=== PATIENT | female | born 1985 | race Caucasian/White ===

== ENCOUNTER 2016-06-20 13:43 | Emergency (ER) | payer SELFPAY ==
[~2016-06-20] VITALS: Ht 165.1 cm; Wt 55.1 kg
[~2016-06-20 13:43] MED LIST: AUGM875T PO; CYCL-36 PO; METO25 PO; OXYC15TA PO; PERC7.5T13 PO; PRED20 PO; PRED50 PO
[2016-06-20 13:51] VITALS: BP 124/88; PULSE 116; RESP 16; TEMP 99; O2SAT 100
== END 2016-06-20 14:28 | disposition left against medical advice (07) ==
LOC: PHED 13:43
DX: R59.0 Localized enlarged lymph nodes (principal); Z53.21 Procedure and treatment not carried out due to patient leaving prior to being seen by health care provider
CPT/HCPCS: 99281

== ENCOUNTER 2016-06-23 02:18 | Emergency (ER) | payer OTHER ==
[~2016-06-23] VITALS: Ht 165.1 cm; Wt 56.3 kg
[2016-06-23 02:24] VITALS: BP 131/95; PULSE 109; RESP 20; TEMP 98.3; O2SAT 100
[2016-06-23] MEDS ORDERED: NAPR220T95 PO (03:04)
[2016-06-23] MEDS ORDERED: METO25TA3 PO (03:04)
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
[2016-06-23] MEDS ORDERED: AMOX875T PO (04:04)
[2016-06-23] MEDS ORDERED: PERC5TAB12 PO (04:09)
[2016-06-23] MEDS ORDERED: cefTRIAXone INJ 1,000 MG in SODIUM CHLORIDE 0.9% INJ 100 ML IV ONE (04:15)
[2016-06-23] MEDS ORDERED: oxyCODONE/ACETAMINOPHEN 7.5 MG/325 MG TAB PO ONE (04:15)
[2016-06-23 04:37] LABS: BETA HCG QUANT LESS THAN 1 MIU/ML (0-5)
[2016-06-23 05:29] VITALS: BP 143/88; TEMP 98.1
== END 2016-06-23 05:33 | disposition home or self-care (01) ==
LOC: PHED 02:18
DX: K12.2 Cellulitis and abscess of mouth (principal); K02.9 Dental caries, unspecified; F90.9 Attention-deficit hyperactivity disorder, unspecified type; I10 Essential (primary) hypertension; F17.200 Nicotine dependence, unspecified, uncomplicated; Z88.8 Allergy status to other drugs, medicaments and biological substances
CPT/HCPCS: 84702; 96365; 99283; J0696

== ENCOUNTER 2016-08-15 21:30 | Emergency (ER) | payer OTHER ==
[~2016-08-15] VITALS: Ht 165.1 cm; Wt 52.0 kg
[~2016-08-15 21:30] MED LIST changes: +AMOX875T PO; -AUGM875T PO; -CYCL-36 PO; -METO25 PO; +METO25TA3 PO; +NAPR220T95 PO; -OXYC15TA PO; +PERC5TAB12 PO; -PERC7.5T13 PO; -PRED20 PO; -PRED50 PO
[2016-08-15 21:31] VITALS: BP 138/88; PULSE 91; RESP 16; TEMP 98.3; O2SAT 100
--- NOTE | 2016-08-15 23:02 | PD ---
HPI Chief Complaint: Related Problem Time Seen by Provider: 23:01 Travel History International Travel<30 days: No Contact w/Intl Traveler<30days: No Traveled to known affect area: No History of Present Illness HPI 29-year-old female came to the emergency room with history of spotting. Patient tested positive for at home. Her last menstrual period was July 02. She has not had any OB seen her yet. Patient says the spotting started 2 days ago when it was just a light bleed. However today it was brighter. No history of cramps. Patient is A1. PFSH Past Medical History Narrative Medical List of her past medical, surgical, social and family history reviewed from the nursing note. Hx Anticoagulant Therapy: No ADHD: Yes Blood Disorders: No Cancer: No Cardiovascular Problems: Yes (htn on meds) Chemotherapy: No Cerebrovascular Accident: No Diabetes: No Diminished Hearing: No Endocrine: No Glaucoma: No Genitourinary: No Headaches: No Hepatitis: No Hiatal Hernia: No Hypertension: Yes Immune Disorder: No Musculoskeletal: Yes (CHRONIC JAW PAIN) Neurologic: No Psychiatric: No Reproductive: No Respiratory: No Immunizations Current: Yes Radiation Therapy: No Seizures: No Sickle Cell Disease: No Thyroid Disease: No ?: LMP: 07/02/16 : 4 Para: 3 Miscarriage: 1 : 0 Past Surgical History Oral Surgery: Yes (SINUS AND JAW SURGERY) Pacemaker: No Other Surgery: Yes (JAW SURGERIES) Social History Alcohol Use: Yes (SOCIALLY/Occassionally) Tobacco Use: Yes (1PPD) Substance Use: Yes (Patient denies abuse.) Allergies-Medications (Allergen,Severity, Reaction): Coded Allergies: Azithromycin (Verified Allergy, Severe, NAUSEA/HIVES, 06/23/16) Erythromycin (Verified Allergy, Severe, HIVES; NAUSEA AND VOMITING, 08/15/16 ) Macrolides (Verified Allergy, Unknown, 06/23/16) Per [facility] (Pharmacist) [phone] Uncoded Allergies: FRUIT PUCH (Allergy, Mild, HIVES AND NAUSEA AND VOMITING, 11/05/15) . "Fruit Punch" (Allergy, Unknown, 11/05/15) .Per pt. Comments List of her allergies reviewed from the nursing note. Reported Meds & Prescriptions Reported Meds & Active Scripts Active Macrobid (Nitrofurantoin Monoh/Nitrofur Macro) 100 Mg Cap 100 Mg PO BID 10 Days Percocet (Oxycodone-Acetaminophen) 5-325 mg Tab 1 Tab PO Q4H PRN Reported Metoprolol Tartrate 25 Mg Tab 25 Mg PO BID Narrative Medication List of her home medications reviewed from the nursing note. Review of Systems Except as stated in HPI: all other systems reviewed are Neg Physical Exam Narrative GENERAL: Awake, alert, no obvious distress SKIN: Focused skin assessment warm/dry. HEAD: Atraumatic. Normocephalic. EYES: Pupils equal and round. No scleral icterus. No injection or drainage. ENT: No nasal bleeding or discharge. Mucous membranes pink and moist. Poor dentition. NECK: Trachea midline. No JVD. CARDIOVASCULAR: Regular rate and rhythm. No murmur appreciated. RESPIRATORY: No accessory muscle use. Clear to auscultation. Breath sounds equal bilaterally. GASTROINTESTINAL: Abdomen soft, non-tender, nondistended. Hepatic and splenic margins not palpable. MUSCULOSKELETAL: No obvious deformities. No clubbing. No cyanosis. No edema. NEUROLOGICAL: Awake and alert. No obvious cranial nerve deficits. Motor grossly within normal limits. Normal speech. PSYCHIATRIC: Appropriate mood and affect; insight and judgment normal. Data Data Last Documented VS Vital Signs Date Time Temp Pulse Resp B/P Pulse Ox O2 Delivery O2 Flow Rate FiO2 08/15/16 21:31 98.3 91 16 138/88 100 Room Air Orders Beta Hcg (Quant/Titer) (08/15/16 23:14) Complete Blood Count With Diff (08/15/16 23:14) Basic Metabolic Panel (Bmp) (08/15/16 23:14) Type And Screen (08/15/16 23:14) Ua Includes Microscopic (08/15/16 23:14) Ed Urine Pregnancytest Poc (08/15/16 23:14) Potassium Chloride Eff (K-Lyte Cl Eff) (08/16/16 00:30) Nitrofurantoin Monohyd Macrocr (Macrobid (08/16/16 00:30) Us Pelvis (Ques Pr/Ect)W Trans (08/16/16 ) Labs Laboratory Tests Test 08/15/16 08/15/16 23:20 23:25 Urine Color YELLOW Urine Turbidity HAZY Urine pH 6.5 Urine Specific [place] 1.017 Urine Protein NEG mg/dL Urine Glucose (UA) NEG mg/dL Urine Ketones NEG mg/dL Urine Occult Blood NEG Urine Nitrite POS Urine Bilirubin NEG Urine Urobilinogen LESS THAN 2.0 MG/DL Urine Leukocyte Esterase MOD Urine RBC 2 /hpf Urine WBC 10 /hpf Urine Squamous Epithelial 2 /hpf Cells Urine Amorphous Sediment RARE Urine Bacteria MANY /hpf Urine Hyaline Casts /lpf Urine Mucus FEW /lpf White Blood Count 7.3 TH/MM3 Red Blood Count 4.11 MIL/MM3 Hemoglobin 10.0 GM/DL Hematocrit 31.2 % Mean Corpuscular Volume 75.9 FL Mean Corpuscular Hemoglobin 24.3 PG Mean Corpuscular Hemoglobin 32.0 % Concent Red Cell Distribution Width 18.3 % Platelet Count 211 TH/MM3 Mean Platelet Volume 8.1 FL Neutrophils (%) (Auto) 56.1 % Lymphocytes (%) (Auto) 33.8 % Monocytes (%) (Auto) 7.3 % Eosinophils (%) (Auto) 2.0 % Basophils (%) (Auto) 0.8 % Neutrophils # (Auto) 4.1 TH/MM3 Lymphocytes # (Auto) 2.5 TH/MM3 Monocytes # (Auto) 0.5 TH/MM3 Eosinophils # (Auto) 0.1 TH/MM3 Basophils # (Auto) 0.1 TH/MM3 CBC Comment DIFF FINAL Differential Comment Sodium Level 140 MEQ/L Potassium Level 3.1 MEQ/L Chloride Level 107 MEQ/L Carbon Dioxide Level 25.7 MEQ/L Anion Gap 7 MEQ/L Blood Urea Nitrogen 5 MG/DL Creatinine 0.54 MG/DL Estimat Glomerular Filtration 130 ML/MIN Rate Random Glucose 95 MG/DL Calcium Level 8.5 MG/DL Human Chorionic Gonadotropin, [address]10 MIU/ML Quant Blood Type O POSITIVE Antibody Screen NEGATIVE MDM Medical Decision Making Medical Screen Exam Complete: Yes Emergency Medical Condition: Yes Medical Record Reviewed: Yes Differential Diagnosis Threatened , implantation bleed Narrative Course 11:20 PM awaiting for the blood test result. I'll perform a bedside pelvic ultrasound. 12:36 AM blood test results of back and patient has a significant beta hCG Quant on sides with the number of weeks. However when I did the bedside ultrasound I was unable to visualize a fetus within a gestational sac. The gestational sac looked blurry and I was unsure whether it was within the uterus. I have ordered an official ultrasound at this point. Awaiting for the ultrasound to be done and resulted. Her UA suggestive of UTI and I have given her a dose of Macrobid. Also the potassium is low and I have ordered for placement. He is will be signed out to the PA who is in the pod Procedures Procedure Narrative Emergency Department Pelvic ultrasound was performed with patient consent. The curvilinear probe was used in the transverse and sagittal views within the suprapubic region revealing inconclusive intrauterine . EKG Prior to Arrival: No Scripts Nitrofurantoin Monohydrate Macrocrystals (Macrobid)100 Mg Cer672 Mg PO BID 10 Days Ref 0 Prov:Boo Dill MD 08/16/16 Boo Dill MD Aug 15, 2016 23:02
[2016-08-15 23:49] LABS: AUTOMATED NEUTROPHIL # 4.1 TH/MM3 (1.8-7.7); BASOPHIL # 0.1 TH/MM3 (0-0.2); BASOPHIL % 0.8 % (0.0-2.0); EOSINOPHIL # 0.1 TH/MM3 (0-0.4); HEMATOCRIT 31.2 % (35.0-46.0); HEMO FLAGS DIFF FINAL; LYMPH % 33.8 % (9.0-44.0); LYMPHOCYTE # 2.5 TH/MM3 (1.0-4.8); MEAN CELL VOLUME 75.9 FL (80.0-100.0); MEAN CORPUSCULAR HEMOGLOBIN 24.3 PG (27.0-34.0); MONO % 7.3 % (0.0-8.0); NEUT % 56.1 % (16.0-70.0); PLATELET COUNT 211 TH/MM3 (150-450); RED BLOOD COUNT 4.11 MIL/MM3 (4.00-5.30); RED CELL DISTRIBUTION WIDTH 18.3 % (11.6-17.2); WHITE BLOOD COUNT 7.3 TH/MM3 (4.0-11.0)
[2016-08-16 00:06] LABS: BICARBONATE 25.7 MEQ/L (21.0-32.0); POTASSIUM 3.1 MEQ/L (3.5-5.1)
[2016-08-16 00:08] LABS: BACTERIA, URINE MANY /hpf; BLOOD, URINE NEG (NEG); GLUCOSE,URINE NEG (NEG); KETONE, URINE NEG (NEG); MUCUS URINE FEW /lpf (OCC); PH, URINE 6.5 (5.0-8.5); SQUAMOUS EPITHELIAL CELL URINE 2 /hpf (0-5); URINE COLOR YELLOW (YELLW/STRAW)
[2016-08-16 00:12] LABS: NITRITE,URINE POS (NEG)
[2016-08-16] MEDS ORDERED: NITROFURANTOIN MONOHYD MACROCR 100 MG CAP PO ONE (00:30)
[2016-08-16] MEDS ORDERED: POTASSIUM CHLORIDE 25 MEQ EFFERVESCENT TAB PO ONE (00:30)
--- NOTE | 2016-08-16 01:36 | RADRPT ---
EXAM DATE/TIME: 08/16/2016 00:59 [place] COMPARISON: No previous studies available for comparison. INDICATIONS : Vaginal spotting. LAB(S): Beta-hC,202 MEDICAL HISTORY : . Hypertension. SURGICAL HISTORY : Oral surgery. ENCOUNTER: Initial ACUITY: 1 day PAIN SCORE: 2/10 LOCATION: Bilateral pelvis MEASUREMENTS: UTERUS: 9.6 x 4.8 x 7.3 cm ENDOMETRIAL STRIPE: >20 mm RIGHT OVARY: 4.2 x 1.8 x 2.8 cm LEFT OVARY: 2.9 x 2.1 x 2.0 cm FREE FLUID: No CROWN RUMP LENGTH: 1.3 cm = 7 WKS 4 DAYS FHR: 161 BPM FINDINGS: UTERUS: Uterus is gravid with a 2.5 cm gestational sac containing a viable intrauterine with an est imated gestational age of 7 weeks and 4 days. Yolk sac is present. A small, crescentic complex area m easuring 1.1 x 0.5 x 1.6 cm adjacent to the gestational sac is characteristic of a small subchorionic hemorrhage. RIGHT OVARY: Ovary contains no mass or significant cystic lesion. LEFT OVARY: Ovary contains no mass or significant cystic lesion. MISCELLANEOUS: No free fluid. CONCLUSION: 1. Probable small, 1.1 x 0.5 x 1.6 cm subchorionic hemorrhage. 2. Otherwise, viable intrauterine with a gestational age of 7 weeks and 4 days. Abdi Meeks MD on August 16, 2016 at 1:31 Board Certified Radiologist. This report was verified electronically.
--- NOTE | 2016-08-16 01:41 | PD ---
Physical Exam Narrative Patient was signed out to me by previous provider pending OB ultrasound. Please see Dr. Dill's documentation for full H&P. Data Data Last Documented VS Vital Signs Date Time Temp Pulse Resp B/P Pulse Ox O2 Delivery O2 Flow Rate FiO2 08/15/16 21:31 98.3 91 16 138/88 100 Room Air Orders Beta Hcg (Quant/Titer) (08/15/16 23:14) Complete Blood Count With Diff (08/15/16 23:14) Basic Metabolic Panel (Bmp) (08/15/16 23:14) Type And Screen (08/15/16 23:14) Ua Includes Microscopic (08/15/16 23:14) Ed Urine Pregnancytest Poc (08/15/16 23:14) Potassium Chloride Eff (K-Lyte Cl Eff) (08/16/16 00:30) Nitrofurantoin Monohyd Macrocr (Macrobid (08/16/16 00:30) Us Pelvis (Ques Pr/Ect)W Trans (08/16/16 ) Labs Laboratory Tests Test 08/15/16 08/15/16 23:20 23:25 Urine Color YELLOW Urine Turbidity HAZY Urine pH 6.5 Urine Specific [place] 1.017 Urine Protein NEG mg/dL Urine Glucose (UA) NEG mg/dL Urine Ketones NEG mg/dL Urine Occult Blood NEG Urine Nitrite POS Urine Bilirubin NEG Urine Urobilinogen LESS THAN 2.0 MG/DL Urine Leukocyte Esterase MOD Urine RBC 2 /hpf Urine WBC 10 /hpf Urine Squamous Epithelial 2 /hpf Cells Urine Amorphous Sediment RARE Urine Bacteria MANY /hpf Urine Hyaline Casts /lpf Urine Mucus FEW /lpf White Blood Count 7.3 TH/MM3 Red Blood Count 4.11 MIL/MM3 Hemoglobin 10.0 GM/DL Hematocrit 31.2 % Mean Corpuscular Volume 75.9 FL Mean Corpuscular Hemoglobin 24.3 PG Mean Corpuscular Hemoglobin 32.0 % Concent Red Cell Distribution Width 18.3 % Platelet Count 211 TH/MM3 Mean Platelet Volume 8.1 FL Neutrophils (%) (Auto) 56.1 % Lymphocytes (%) (Auto) 33.8 % Monocytes (%) (Auto) 7.3 % Eosinophils (%) (Auto) 2.0 % Basophils (%) (Auto) 0.8 % Neutrophils # (Auto) 4.1 TH/MM3 Lymphocytes # (Auto) 2.5 TH/MM3 Monocytes # (Auto) 0.5 TH/MM3 Eosinophils # (Auto) 0.1 TH/MM3 Basophils # (Auto) 0.1 TH/MM3 CBC Comment DIFF FINAL Differential Comment Sodium Level 140 MEQ/L Potassium Level 3.1 MEQ/L Chloride Level 107 MEQ/L Carbon Dioxide Level 25.7 MEQ/L Anion Gap 7 MEQ/L Blood Urea Nitrogen 5 MG/DL Creatinine 0.54 MG/DL Estimat Glomerular Filtration 130 ML/MIN Rate Random Glucose 95 MG/DL Calcium Level 8.5 MG/DL Human Chorionic Gonadotropin, 28816 MIU/ML Quant Blood Type O POSITIVE Antibody Screen NEGATIVE MDM Supervised Visit with CRAIG: No Interpretation(s) OB ultrasound read by radiologist shows: 1. Probable small, 1.1 x 0.5 x 1.6 cm subchorionic hemorrhage. 2. Otherwise, viable intrauterine with a gestational age of 7 weeks and 4 days. Narrative Course Patient in no obvious distress upon re-evaluation. All pertinent laboratory/ Radiology result(s) discussed with patient/family. Patient was advised to not have sex, heavy lifting, strenuous activity, pelvic rest, and close follow-up with OB. Patient advised to return here for any fevers, abdominal pain, increased bleeding, or for other concerns. Any questions/concerns in reference to patient diagnosis/condition discussed and clarified prior to patient's discharge. Reinforced sheer importance of close follow up with patient's OB in 2 -3 days or to return here if unable to follow up. Instructed patient to return to ED immediately, if symptoms return/worsen. Pt showed understanding of above instructions. Further instructions and recommendations were detailed in discharge paperwork. Pt ambulated without difficulty out of ED at discharge. Diagnosis Primary Impression: Threatened miscarriage in early Additional Impressions: Subchorionic hemorrhage in first trimester UTI (urinary tract infection) during Qualified Code: O23.41 - UTI (urinary tract infection) during , first trimester Referrals: [facility] OB Patient Instructions: General Instructions, Subchorionic Hemorrhage (ED), Threatened Miscarriage (ED), Urinary Tract Infection in (ED) Additional Instruction: Follow-up with your OB in 2-3 days for re-evaluation. Take all medication as prescribed. Pelvic rest. No sex. Return to the emergency department if symptoms get worse. Med/Other Pt SpecificInfo: Prescription(s) given Scripts Nitrofurantoin Monohydrate Macrocrystals (Macrobid)100 Mg [id number] Mg PO BID 10 Days Ref 0 Prov:Boo Dill MD 08/16/16 Disposition: 01 DISCHARGE HOME Condition: Stable Lorenzo Almonte Aug 16, 2016 01:41
[2016-08-16] MEDS ORDERED: MACR100C2 PO (01:42)
== END 2016-08-16 02:50 | disposition home or self-care (01) ==
LOC: NEPD 21:30
DX: O20.0 Threatened abortion (principal); O46.8X1 Other antepartum hemorrhage, first trimester; O08.83 Urinary tract infection following an ectopic and molar pregnancy; O16.1 Unspecified maternal hypertension, first trimester; O99.331 Smoking (tobacco) complicating pregnancy, first trimester; Z3A.01 Less than 8 weeks gestation of pregnancy; Z79.899 Other long term (current) drug therapy
CPT/HCPCS: 76700; 76817; 80048; 81001; 84702; 84703; 85025; 86850; 86900; 86901; 99285

== ENCOUNTER 2017-03-12 05:30 | Inpatient (IN) | payer MEDICAID, OTHER ==
[2017-03-12] VITALS (14 sets, daily range): BP systolic 116–168; BP diastolic 76–101; PULSE 63–94; RESP 12–20; TEMP 98.5
[~2017-03-12] VITALS: Ht 165.1 cm; Wt 70.0 kg
[~2017-03-12 05:30] MED LIST changes: -AMOX875T PO; -METO25TA3 PO; -NAPR220T95 PO; -PERC5TAB12 PO; +PREN1CAP20 PO
[2017-03-12] MEDS ORDERED: LACTATED RINGER'S 1000 ML INJ 1,000 ML IV PRN (05:35)
[2017-03-12] MEDS ORDERED: ZOLPIDEM TARTRATE 5 MG TAB PO PRN (05:45)
[2017-03-12] MEDS ORDERED: CITRIC ACID-SODIUM CITRATE LIQ 30 ML UDC PO SCH (05:45)
[2017-03-12] MEDS ORDERED: DOCUSATE SODIUM 50 MG/SENNA 8.6 MG TAB PO PRN (05:45)
[2017-03-12] MEDS ORDERED: ONDANSETRON ODT 4 MG TAB PO PRN (05:45)
[2017-03-12] MEDS ORDERED: SODIUM CHLORIDE 0.9% FLUSH 10 ML FLUSH IV FLUSH PRN (05:45)
[2017-03-12] MEDS ORDERED: WITCH HAZEL 50%/GLYCERIN 12.5% 40 PAD JAR TOPICAL PRN (05:45)
[2017-03-12] MEDS ORDERED: ACETAMINOPHEN 325 MG TAB PO PRN (05:45)
[2017-03-12] MEDS ORDERED: MINERAL OIL 10 ML VIAL TOPICAL PRN (05:45)
[2017-03-12] MEDS ORDERED: SODIUM CHLORID 0.9% 500 ML INJ 500 ML IV PRN (05:45)
[2017-03-12] MEDS ORDERED: ALUMINUM/MAGNESIUM/SIMETH 30 ML CUP PO PRN (05:45)
[2017-03-12] MEDS ORDERED: LIDOCAINE HCL 1% 50 ML VIAL I-DERMAL PRN (05:45)
[2017-03-12] MEDS ORDERED: OXYTOCIN 30 UNITS-500ML PREMIX 500 ML IV ONE (05:45)
[2017-03-12] MEDS ORDERED: OXYTOCIN 30 UNITS-500ML PREMIX 500 ML IV SCH (05:45)
[2017-03-12] MEDS ORDERED: BENZOCAINE 20% TOPICAL SPRAY 60 ML CAN TOPICAL PRN (05:45)
[2017-03-12] MEDS ORDERED: LIDOCAINE HCL 1% 50 ML VIAL INFIL PRN (05:45)
--- NOTE | 2017-03-12 05:46 | HHI.HP ---
HPI Chief Complaint Contractions Date Seen: Mar 12, 2017 Time Seen: 05:30 Travel History International Travel<30 Days: No Contact w/Intl Traveler<30Days: No Known Affected Area: No History of Present Illness HPI 31-year-old white female at 37 weeks presents of precipitous labor in the second stage of completely dilated and pushing, heart tones are within normal limits contractions are regular. [facility] Weeks Gestation: 37 Para: 3 : 4 History Past Medical History Narrative Medical hypertension takes metoprolol 25 mg bid Obstetric History Obstetric History 3 vaginal deliveries Social History Alcohol Use: No Tobacco Use: Yes Substance Abuse: Yes Allergies-Medications (Allergen,Severity, Reaction): Coded Allergies: azithromycin (Verified Allergy, Severe, NAUSEA/HIVES, 02/05/17) erythromycin base (Verified Allergy, Unknown, 02/05/17) Per [facility] (Pharmacist) [phone] Uncoded Allergies: FRUIT PUCH (Allergy, Mild, HIVES AND NAUSEA AND VOMITING, 11/05/15) . "Fruit Punch" (Allergy, Unknown, 11/05/15) .Per pt. Home Meds Active Scripts W/O Vit A W/ Fe Carbo (Prenate Mini 18-0.6-0.4-350 mg) 1 Cap Cap, 1 TAB PO DAILY for nutrition, #90 BOTTLE 6 Refills Prov:Ellen Ruiz 09/18/16 Reported Medications [metroprolol] No Conflict Check, 25 MG PO BID 03/12/17 [Lortab] (Lortab Elixir 7.5/500 Per 15 Ml) No Conflict Check, 5 MG PO 4Xdaily 03/12/17 Review of Systems General / Constitutional: No: Fever, Weight Gain, Chills, Other Eyes: No: Diploplia, Blurred Vision, Visual changes, Pain, Photophobia HENT: No: Headaches, Vertigo, Lightheadedness Cardiovascular: No: Irregular Rhythm, Chest Pain or Discomfort, Palpitations, Tachycardia, Syncope, Varicosities, Edema, Cyanosis Respiratory: No: Cough, Short of Breath, Other Gastrointestinal: Abdominal Pain, No: Nausea, Vomiting, Diarrhea Genitourinary: No: Decreased Urinary Output, Oliguria Musculoskeletal: No: Limited ROM, Weakness, Cramping, Edema, Pain Skin: No Rash, No Itching, No Dryness, No Lumps, No Change in Pigmentation, No Change in Nails, No Alopecia, No Lesions Neurologic: No: Weakness, Dizziness, Syncope, Focal Abnormalities, Coordination Problem, Headache, Slurred Speech, Seizures Psychiatric: No: Depression, Suicidal Ideations, Homicidal Ideation Endocrine: No: Heat Intolerance, Cold Intolerance, Polydipsia, Polyuria, Other Physical Exam Narrative GENERAL: Well-nourished, well-developed patient. SKIN: Warm and dry. HEAD: Normocephalic and atraumatic. EYES: No scleral icterus. No injection or drainage. ENT: No nasal drainage noted. Mucous membranes pink. Airway patent. NECK: Supple, trachea midline. No JVD. CARDIOVASCULAR: Regular rate and rhythm without murmurs, gallops, or rubs. RESPIRATORY: Breath sounds equal bilaterally. No accessory muscle use. BREASTS: Bilateral exam showed no masses , no retractions, no nipple discharge. ABDOMEN/GI: Abdomen soft, non-tender, bowel sounds present, no rebound, no guarding Gravid to [-37] weeks size Fundal Height: [-37] GENITOURINARY: External Genitalia: intact and normal in appearance BUS glands: [-] Cervix: [-] Dilatation: [-10] Effacement: [100-] Station: [0-] Presentation: [-vtx] Membranes: ruptured] Uterine Contractions: [-reg] FHT's: Category: [1-] Baseline: [133-] Reactive: [R-] Variability: [mod-] Decels: [none-] EXTREMITIES: No cyanosis or edema. BACK: Nontender without obvious deformity. No CVA tenderness. NEUROLOGICAL: Awake and alert. Motor and sensory grossly within normal limits. Five out of 5 muscle strength in all muscle groups. Normal speech. Caprini VTE Risk Assessment Caprini VTE Risk Assessment: No/Low Risk (score <= 1) Caprini Risk Assessment Model Point Value = 1 Point Value = 2 Point Value = 3 Point Value = 5 Age 41-60 Minor surgery BMI > 25 kg/m2 Swollen legs Varicose veins or History of unexplained or recurrent spontaneous Oral contraceptives or hormone replacement Sepsis (< 1 month) Serious lung disease, including pneumonia (< 1 month) Abnormal pulmonary function Acute myocardial infarction Congestive heart failure (< 1 month) History of inflammatory bowel disease Medical patient at bed rest Age 61-74 Arthroscopic surgery Major open surgery (> 45 min) Laparoscopic surgery (> 45 min) Malignancy Confined to bed (> 72 hours) Immobilizing plaster cast Central venous access Age >= 75 History of VTE Family history of VTE Factor V Leiden Prothrombin [id number] Lupus anticoagulant Anticardiolipin antibodies Elevated serum homocysteine Heparin-induced thrombocytopenia Other congenital or acquired thrombophilia Stroke (< 1 month) Elective arthroplasty Hip, pelvis, or leg fracture Acute spinal cord injury (< 1 month) Prophylaxis Regimen Total Risk Factor Score Risk Level Prophylaxis Regimen 0-1 Low Early ambulation 2 Moderate Order ONE of the following: *Sequential Compression Device (SCD) *Heparin 5000 units SQ BID 3-4 Higher Order ONE of the following medications: *Heparin 5000 units SQ TID *Enoxaparin/Lovenox 40 mg SQ daily (WT < 150 kg, CrCl > 30 mL/min) *Enoxaparin/Lovenox 30 mg SQ daily (WT < 150 kg, CrCl > 10-29 mL/min) *Enoxaparin/Lovenox 30 mg SQ BID (WT < 150 kg, CrCl > 30 mL/min) AND/OR *Sequential Compression Device (SCD) 5 or more Highest Order ONE of the following medications: *Heparin 5000 units SQ TID (Preferred with Epidurals) *Enoxaparin/Lovenox 40 mg SQ daily (WT < 150 kg, CrCl > 30 mL/min) *Enoxaparin/Lovenox 30 mg SQ daily (WT < 150 kg, CrCl > 10-29 mL/min) *Enoxaparin/Lovenox 30 mg SQ BID (WT < 150 kg, CrCl > 30 mL/min) AND *Sequential Compression Device (SCD) Data Data Orders Orders Vital Signs (Adult) .Per protocol (03/12/17 05:35) Activity Oob Ad Antonia (03/12/17 05:35) Heart (03/12/17 05:35) Amnioinfusion (03/12/17 05:35) Urinary Catheter Management .ONCE (03/12/17 05:35) Lactated Ringer's 1000 Ml Inj (Lr 1000 M (03/12/17 05:35) Lactated Ringer's 1000 Ml Inj (Lr 1000 M (03/12/17 05:35) Sodium Chlorid 0.9% 500 Ml Inj (Ns 500 M (03/12/17 05:45) Sodium Chlor 0.9% 1000 Ml Inj (Ns 1000 M (03/12/17 05:55) Lidocaine 1% Inj (50 Ml) (Xylocaine 1% I (03/12/17 05:45) Citric Acid-Sodium Citrate Liq (Bicitra (03/12/17 05:45) Fentanyl Inj (Fentanyl Inj) (03/12/17 05:45) Fentanyl Inj (Fentanyl Inj) (03/12/17 05:45) Complete Blood Count With Diff (03/12/17 05:35) Hold Clot (03/12/17 05:35) Abo/Rh Blood Type (03/12/17 05:35) Urinalysis - C+S If Indicated (03/12/17 05:35) Drug Screen, Random Urine (03/12/17 05:35) Resp Oxygen Non Rebreathe Mask (03/12/17 ) ^ Epidural / Intrathecal Infus (03/12/17 05:35) Oxytocin 30 Units-500ml Premix (Pitocin (03/12/17 05:45) Lidocaine 1% Inj (50 Ml) (Xylocaine 1% I (03/12/17 05:45) Light Mineral Oil (Muri-Lube Oil) (03/12/17 05:45) Admit To Inpatient (03/12/17 ) Vital Signs (Adult) .QSHIFT (03/12/17 05:36) Activity Oob Ad Antonia (03/12/17 05:36) Ice / Cold Pack PRN (03/12/17 05:36) Discontinue Iv (03/12/17 05:36) Sitz Bath PRN (03/12/17 05:36) ^ Massage (03/12/17 05:36) ^ Rhogam (03/12/17 05:36) Urinary Catheter Management .PRN (03/12/17 05:36) Diet Regular Basic (03/12/17 Breakfast) Sodium Chloride 0.9% Flush (Ns Flush) (03/12/17 09:00) Sodium Chloride 0.9% Flush (Ns Flush) (03/12/17 05:45) Oxytocin 30 Units-500ml Premix (Pitocin (03/12/17 05:45) Acetaminophen (Tylenol) (03/12/17 05:45) Ibuprofen (Motrin) (03/12/17 05:45) Oxycodone-Acetamin 5-325 Mg (Percocet (03/12/17 05:45) Benzocaine 20% Top Spr (Americaine 20% T (03/12/17 05:45) Witch Helen-Glycerin Pad (Tucks Pads) (03/12/17 05:45) Docusate Sodium-Senna (Estee-Colace) (03/12/17 05:45) Zolpidem (Ambien) (03/12/17 05:45) Ksbuets-Vyvmy-Pxvomoq Inj (M-M-R Ii Inj) (03/12/17 16:00) Bhfz-Bbh-Chykce (Booster) Inj (Boostrix (03/12/17 16:00) Al-Mag Hy-Si 40-40-4 Mg/Ml Liq (Mag-Al P (03/12/17 05:45) Ondansetron Odt (Zofran Odt) (03/12/17 05:45) Assessment/Plan Assessment and Plan 31-year-old white female at 37 weeks presents in precipitous labor completely dilated on arriving OB ED. heart tones are within normal limits contractions are regular patient is thrashing about in severe pain Anticipate vaginal delivery Tristen Colin II, MD Mar 12, 2017 05:46
--- NOTE | 2017-03-12 05:49 | PD.OB.DELI ---
Weeks gestation: 37 Gest age assessed date: Mar 12, 2017 Gest age assessed time: 05:30 Pt started active labor?: Yes Active labor start date: Mar 12, 2017 Active labor start time: 04:00 Medical induction of labor?: No Artificial rupture of membrane: No Anesthesia: None, Lidocaine local to perineum Episiotomy: None Vaginal Delivery: Normal Presentation: Occiput anterior Nuchal Cord: None Delayed cord clamping (45 sec): No Infant: Female Delivery date: Mar 12, 2017 Delivery time: 05:18 One Minute : 8 Five Minute : 9 Weight: 2850 gm Placenta: Spontaneous delivery Laceration: Perineal laceration, 1 deg Repair: Chromic running Estimated blood loss: 200 cc Additional Information precipitous labor and delivery Tristen Colin II, MD Mar 12, 2017 05:49
[2017-03-12] MEDS: LACTATED RINGER'S 1000 ML INJ 1,000 ML IV SCH ×2 (05:51→22:08)
[2017-03-12] MEDS ORDERED: SODIUM CHLOR 0.9% 1000 ML INJ 1,000 ML IV PRN (05:55)
[2017-03-12] MEDS ORDERED: LORTS PO (06:05)
[2017-03-12] MEDS ORDERED: metroprolol PO (06:07)
[2017-03-12] MEDS ORDERED: OXYTOCIN 10 UNIT/ML AMP ONE (06:09)
[2017-03-12] MEDS ORDERED: LIDOCAINE HCL 1% 20 ML VIAL ONE (06:09)
[2017-03-12] MEDS: oxyCODONE/ACETAMINOPHEN 5 MG/325 MG TAB PO PRN ×3 (06:10→17:56)
[2017-03-12 06:24] LABS: AUTOMATED NEUTROPHIL # 7.9 TH/MM3 (1.8-7.7); BASOPHIL # 0.1 TH/MM3 (0-0.2); BASOPHIL % 0.7 % (0.0-2.0); EOSINOPHIL % 0.3 % (0.0-4.0); HEMATOCRIT 30.4 % (35.0-46.0); HEMOGLOBIN 10.3 GM/DL (11.6-15.3); LYMPH % 19.9 % (9.0-44.0); LYMPHOCYTE # 2.2 TH/MM3 (1.0-4.8); MEAN CELL VOLUME 75.1 FL (80.0-100.0); MEAN CORPUSCULAR HEMOGLOBIN 25.4 PG (27.0-34.0); MEAN CORPUSCULAR HGB CONC 33.8 % (32.0-36.0); MEAN PLATELET VOLUME 7.2 FL (7.0-11.0); MONO % 6.8 % (0.0-8.0); MONOCYTE # 0.7 TH/MM3 (0-0.9); NEUT % 72.3 % (16.0-70.0); PLATELET COUNT 213 TH/MM3 (150-450); RED BLOOD COUNT 4.05 MIL/MM3 (4.00-5.30); RED CELL DISTRIBUTION WIDTH 14.7 % (11.6-17.2); WHITE BLOOD COUNT 10.9 TH/MM3 (4.0-11.0)
[2017-03-12 06:40] LABS: BACTERIA, URINE RARE /hpf; BILIRUBIN, URINE NEG (NEG); BLOOD, URINE MOD (NEG); GLUCOSE,URINE NEG (NEG); HYALINE CAST, URINE 1 /lpf (RARE); KETONE, URINE NEG (NEG); MUCUS URINE MOD /lpf (OCC); NITRITE,URINE NEG (NEG); PH, URINE 6.5 (5.0-8.5); SQUAMOUS EPITHELIAL CELL URINE 2 /hpf (0-5); TRANSITIONAL EPI CELLS, URINE <1 /hpf; URINE COLOR YELLOW (YELLW/STRAW); URINE LEUKOCYTE ESTERASE SMALL (NEG)
[2017-03-12] MEDS ORDERED: LABETALOL HCL 100 MG/20 ML VIAL ONE (06:47)
[2017-03-12] MEDS ORDERED: LABETALOL HCL 100 MG/20 ML VIAL IV PUSH ONE (07:15)
[2017-03-12] MEDS ORDERED: SODIUM CHLORIDE 0.9% FLUSH 10 ML FLUSH IV FLUSH SCH (09:00)
[2017-03-12] MEDS: IBUPROFEN 800 MG TAB PO PRN ×2 (10:01→17:56)
[2017-03-12] MEDS: METOPROLOL TARTRATE 25 MG TAB PO SCH ×2 (10:01→21:15)
[2017-03-12 14:15] LABS: HEPATITIS A AB IGM NEGATIVE (NEGATIVE); HEPATITIS B CORE AB IGM NEGATIVE (NEGATIVE); HEPATITIS C AB IgG NEGATIVE (NEGATIVE)
[2017-03-12] MEDS ORDERED: DIPHTH/TETANUS/ACEL PERTUSSIS (BOOSTER) 0.5 ML VIAL/PFS IM ONE (16:00)
[2017-03-12] MEDS ORDERED: MEASLES, MUMPS, RUBELLA VACCINE 0.5 ML VIAL SQ ONE (16:00)
[2017-03-12 18:13] LABS: HEPATITIS B SURFACE ANTIGEN REFLEX TO REF LAB (NEGATIVE)
[2017-03-12] MEDS ORDERED: REMOVE OLD PATCH T-DERMAL SCH (18:45)
[2017-03-12] MEDS: NICOTINE 14 MG/24 HR PATCH T-DERMAL SCH (21:15)
[2017-03-13] MEDS: LACTATED RINGER'S 1000 ML INJ 1,000 ML IV SCH (06:29)
[2017-03-13 08:00] VITALS: BP 151/80; PULSE 79; RESP 14; TEMP 98
--- NOTE | 2017-03-13 08:43 | HHI.OB ---
Subjective Post Day: 1 Remarks day #1. AF overnight. Elevated blood pressures occasionally, up to 140s. She states she has chronic hypertension and was on metoprolol 25mg BID, starting at age 20, then during as well. Pain well-controlled. Decreased lochia. Denies dysuria. No breast tenderness. She is feeding the baby via bottle. Appetite good. No nausea or vomiting. Endorses flatus. No bowel movement. Ambulating well. Denies shortness of breath, or cough. Denies any calf pain, but states she is having some lower extremity edema that worsened yesterday. She states it is tender during walking. Otherwise, she is doing well this morning and has no other complaints. Objective Vitals/I&O Vital Signs Date Time Temp Pulse Resp B/P (MAP) Pulse Ox O2 Delivery O2 Flow Rate FiO2 03/13/17 08:00 98.0 79 14 03/13/17 08:00 151/80 (103) 03/12/17 19:50 98.5 77 12 116/77 (90) 03/12/17 11:00 94 138/84 (102) 03/12/17 09:00 68 18 138/91 (107) 03/12/17 09:00 98.5 Objective Remarks GENERAL: Well-nourished, well-developed patient. CARDIOVASCULAR: Regular rate and rhythm without murmurs, gallops, or rubs. RESPIRATORY: Breath sounds equal bilaterally. No accessory muscle use. ABDOMEN/GI: Abdomen soft, non-tender. Fundus: Firm, non-tender at umbilicus. GENITOURINARY: Light to moderate bleeding. EXTREMITIES: 1+ pitting edema bilateral LE up to below knee. Tender to palpation. No calf tenderness or erythema. Medications and IVs Current Medications Medications (Trade) Dose Ordered Sig/Carli Route Start Time Stop Time Status Last Admin Lactated Ringer's 1,000 ml @ 125 mls/hr Q8H IV 03/12/17 05:35 03/12/17 05:51 Lactated Ringer's 1,000 ml @ 3,000 mls/hr Q20M PRN IV 03/12/17 05:35 Sodium Chloride 1,000 ml @ 100 mls/hr Q10H PRN IV 03/12/17 05:55 (Xylocaine 1% Inj (50 ml)) 0.1 ml UNSCH X1 PRN I-DERMAL 03/12/17 05:45 03/15/17 05:44 (Bicitra Liq) 30 ml DIALYSIS NURSE PO 03/12/17 05:45 03/16/17 05:44 (fentaNYL INJ) 50 mcg Q1H PRN IV PUSH 03/12/17 05:45 (fentaNYL INJ) 100 mcg Q1H PRN IV PUSH 03/12/17 05:45 (Xylocaine 1% Inj (50 ml)) 10 ml UNSCH X1 PRN INFIL 03/12/17 05:45 03/14/17 05:44 (Muri-Lube Oil) 10 ml UNSCH PRN TOPICAL 03/12/17 05:45 (NS Flush) 2 ml BID IV FLUSH 03/12/17 09:00 (NS Flush) 2 ml UNSCH PRN IV FLUSH 03/12/17 05:45 (Tylenol) 650 mg Q4H PRN PO 03/12/17 05:45 (Motrin) 800 mg Q8H PRN PO 03/12/17 05:45 03/12/17 17:56 (Percocet 5-325 Mg) 1 tab Q4H PRN PO 03/12/17 05:45 03/12/17 17:56 (Americaine 20% Top Spr) 1 spray Q4H PRN TOPICAL 03/12/17 05:45 (Tucks Pads) 1 applic QID PRN TOPICAL 03/12/17 05:45 (Estee-Colace) 2 tab Q12H PRN PO 03/12/17 05:45 03/12/17 10:01 (Ambien) 5 mg HS PRN PO 03/12/17 05:45 (Mag-Al Plus Susp Liq) 15 ml Q8H PRN PO 03/12/17 05:45 (Zofran Odt) 4 mg Q6H PRN PO 03/12/17 05:45 (Lopressor) 25 mg BID PO 03/12/17 09:00 03/12/17 21:15 (Habitrol 14 Mg Patch.24 Hr) 1 patch DAILY T-DERMAL 03/12/17 18:45 03/12/17 21:15 Miscellaneous Information 1 DAILY T-DERMAL 03/12/17 18:45 Assessment/Plan Assessment and Plan 31y/o who is PPD# 1 s/p . -Continue routine care. -Percocet and Motrin PRN pain. -Encouraged OOB. Advised pelvic rest for 6 wks. -Will need a f/u appt. within 6 wks. -Re: ctrl, she is undecided -D/c in 1-2 more days. Chronic HTN -Continue metoprolol 25mg BID -May need increase in medication Lower extremity edema -Bilateral ultrasounds to rule out DVT Guillermo Todd MD Mar 13, 2017 08:43
[2017-03-13] MEDS: METOPROLOL TARTRATE 25 MG TAB PO SCH (08:47)
[2017-03-13] MEDS: oxyCODONE/ACETAMINOPHEN 5 MG/325 MG TAB PO PRN (08:48)
[2017-03-13] MEDS: IBUPROFEN 800 MG TAB PO PRN (08:48)
[2017-03-13] MEDS: NICOTINE 14 MG/24 HR PATCH T-DERMAL SCH (08:48)
[2017-03-13] MEDS ORDERED: METO25TA3 PO (10:51)
[2017-03-13] MEDS ORDERED: HYDR-3516 PO (10:52)
[2017-03-13 11:44] VITALS: BP 143/81; PULSE 69; RESP 16; TEMP 97.9
--- NOTE | 2017-03-13 12:27 | RADRPT ---
EXAM DATE/TIME: 03/13/2017 11:25 [place] COMPARISON: No previous studies available for comparison. INDICATIONS : Bilateral leg swelling and pain. MEDICAL HISTORY : Hypertension. ADHD. Tobacco use. Chronic sinusitis. SURGICAL HISTORY : Oral surgery. Jaw surgery. ENCOUNTER: Initial ACUITY: 1 day PAIN SCORE: 3/10 LOCATION: Bilateral Leg. TECHNIQUE: Venous ultrasound of the left and right leg was performed from the inguinal ligament to the proximal calf. Real-time, color Doppler and spectral tracing, compression and augmentation techniques were us ed. FINDINGS: RIGHT LEG: There is normal compressibility of the deep venous system from the inguinal region to the proximal ca lf. No echogenic clot is seen in the lumen of the common femoral, femoral, popliteal, and posterior tibial veins. There is a normal response of the venous system to proximal and distal augmentation an d respiration. LEFT LEG: There is normal compressibility of the deep venous system from the inguinal region to the proximal ca lf. No echogenic clot is seen in the lumen of the common femoral, femoral, popliteal, and posterior tibial veins. There is a normal response of the venous system to proximal and distal augmentation an d respiration. CONCLUSION: No DVT is identified within either lower extremity. Chris Olvera MD on March 13, 2017 at 12:24 Board Certified Radiologist. This report was verified electronically.
[2017-03-14 19:53] LABS: HEPATITIS B SAG SCREEN NONREACTIVE (NON-REACTIV)
== END 2017-03-13 16:13 | disposition home or self-care (01) | DRG 774 ==
LOC: HOBED 05:30 → H2EA 05:35 → H1EA 07:53
PROVIDERS: ADMIT Obstetrics & Gynecology Maternal & Fetal Medicine; ATTEND Obstetrics & Gynecology Maternal & Fetal Medicine
PROC: 10E0XZZ Delivery of Products of Conception, External Approach (ICD-10-PCS; principal; 2017-03-12)
PROC: 0HQ9XZZ Repair Perineum Skin, External Approach (ICD-10-PCS; 2017-03-12)
DX: O62.3 Precipitate labor (principal); O10.92 Unspecified pre-existing hypertension complicating childbirth; O70.0 First degree perineal laceration during delivery; O12.05 Gestational edema, complicating the puerperium; Z37.0 Single live birth; Z3A.37 37 weeks gestation of pregnancy
CPT/HCPCS: 80074; 80307; 81001; 85025; 86592; 86703; 86762; 86900; 86901; 87086; 87341; 93970; J2590; J7120